=== PATIENT | male | born 1995 | race African-American/Black ===

== ENCOUNTER 2017-01-20 22:56 | Emergency (ER) | payer MEDICAID, OTHER ==
[~2017-01-20] VITALS: Ht 167.6 cm; Wt 81.6 kg
[2017-01-21 02:35] VITALS: BP 134/81
== END 2017-01-21 03:21 | disposition home or self-care (01) ==
LOC: ER 22:57
DX: L02.211 Cutaneous abscess of abdominal wall (principal); J45.909 Unspecified asthma, uncomplicated